=== PATIENT | female | born 1945 ===

== ENCOUNTER 2016-09-15 08:49 | Emergency (ER) | payer MEDICAID ==
[2016-09-15 08:57] VITALS: RESP 18; TEMP 98; O2SAT 99
[2016-09-15 10:18] VITALS: BP 110/73; PULSE 66
--- NOTE | 2016-09-19 11:46 | C.PDOC ---
History Of Present Illness 71F per family came to ED after being directed by pmd to be evaluated for dementia for a citizenship form. the pt has no complaints at this time. Time Seen by Provider: 09/15/16 08:59 Chief Complaint (Nursing): Medical Clearance Past Medical History Vital Signs: Last Vital Signs Temp 98 F 09/15/16 08:56 Pulse 66 09/15/16 10:17 Resp 18 09/15/16 10:17 BP 110/73 09/15/16 10:17 Pulse Ox 99 09/15/16 10:17 Family History: States: Other Other Family History: nc - Social History Hx Alcohol Use: No Hx Substance Use: No - Immunization History Hx Tetanus Toxoid Vaccination: No Hx Influenza Vaccination: No Hx Pneumococcal Vaccination: No Review Of Systems Constitutional: Negative for: Fever, Chills Cardiovascular: Negative for: Chest Pain Respiratory: Negative for: Cough, Shortness of Breath Gastrointestinal: Negative for: Vomiting, Abdominal Pain Neurological: Negative for: Weakness, Numbness, Headache Physical Exam - Physical Exam Appears: Well, Non-toxic, No Acute Distress Head: Atraumatic Eye(s): bilateral: PERRL Nose: No Epistaxis Tongue: No Swelling Cardiovascular: Rhythm Regular Respiratory: No Decreased Breath Sounds, No Accessory Muscle Use, No Rales, No Rhonchi, No Wheezing Gastrointestinal/Abdominal: Soft, No Tenderness Neurological/Psych: Oriented x3, Other (no focal deficits) ED Course And Treatment O2 Sat by Pulse Oximetry: 99 Medical Decision Making Medical Decision Making: I disc w pmd who says the pt came to ED by mistake- was supposed to go to Dr Perez's office for appt. Spoke w Dr Perez who said pt can come to his office wed 6pm. Disposition - Disposition Referrals: René Perez MD [Staff Provider] - Disposition: HOME/ ROUTINE Disposition Time: :17 Condition: GOOD Additional Instructions: Please follow up with Dr Perez: you have an appointment on Thursday at 6pm. Please call Thursday morning to confirm your appointment. Forms: General Discharge Instructions - Clinical Impression Clinical Impression: Medical assessment
== END 2016-09-15 10:18 | disposition home or self-care (01) ==
LOC: C.ER 08:49
DX: Z02.89 Encounter for other administrative examinations (principal)